=== PATIENT | female | born 1995 | race Caucasian/White ===

== ENCOUNTER 2019-04-07 23:41 | Emergency (ER) | payer BC ==
[~2019-04-07] VITALS: Ht 165.1 cm; Wt 54.4 kg
[2019-04-07] MEDS ORDERED: NOHOMEMEDICATIONS (23:53)
[2019-04-08 01:02] LABS: ABSOLUTE NEUTROPHILS 5.5 thou/uL (1.4-8.2); BASOPHILS 0.7 % (0.0-2.0); EOSINOPHILS 1.9 % (0.0-3.0); HEMATOCRIT 40.3 % (37.0-47.0); HEMOGLOBIN 13.3 gm/dL (12.0-15.0); LYMPHOCYTES 32.5 % (24.0-44.0); MCH 30.8 pg (26.0-34.0); MCV 93.4 fL (80.0-100.0); MONOCYTES 6.7 % (1.0-8.0); PLATELET COUNT 284 thou/uL (150-400); POLYS 58.2 % (36.0-66.0); RBC 4.31 mil/uL (4.20-5.00); RDW 12.5 % (10.5-14.5); WBC 9.4 thou/uL (4.0-11.0)
[2019-04-08 01:04] LABS: CREATININE 0.9 mg/dL (0.6-1.0); POTASSIUM 3.4 mmol/L (3.5-5.1)
[2019-04-08 01:09] LABS: ALBUMIN 4.4 g/dL (3.4-5.0); TOTAL BILIRUBIN 0.5 mg/dL (<0.1-1.0)
[2019-04-08] MEDS ORDERED: LEVSIN0.125 MG PO (03:12)
[2019-04-08] MEDS ORDERED: PRILOSEC OTC20 MG PO (03:12)
[2019-04-08] MEDS ORDERED: TRAMADOL 50 MG50 MG PO (03:12)
[2019-04-08 03:36] VITALS: BP 99/57
[2019-04-08 19:28] LABS: URINE BILIRUBIN NEGATIVE (Negative); URINE BLOOD TRACE (Negative); URINE CLARITY CLEAR; URINE COLOR YELLOW; URINE GLUCOSE-RANDOM* NEGATIVE (Negative); URINE KETONES NEGATIVE (Negative); URINE LEUKOCYTES-REFLEX TRACE (Negative); URINE NITRITE-REFLEX NEGATIVE (Negative); URINE PROTEIN (DIPSTICK) NEGATIVE (Negative); URINE SPECIFIC GRAVITY <= 1.005 (1.005-1.035); URINE UROBILINOGEN 0.2 E.U./dl (0.2-1.0)
== END 2019-04-08 03:36 | disposition home or self-care (01) ==
LOC: ER 23:41
PROVIDERS: Emergency Medicine
DX: R10.84 Generalized abdominal pain (principal); R10.11 Right upper quadrant pain